=== PATIENT | male | born 1970 | race Caucasian/White ===

== ENCOUNTER 2020-10-10 21:21 | Emergency (ER) | payer MEDICARE, OTHER ==
[2020-10-10 21:54] LABS: RED BLOOD COUNT 3.24 M/UL (4.20-5.50); WHITE BLOOD COUNT 9.4 K/UL (4.5-11.0)
[2020-10-10 22:07] LABS: HEMOGLOBIN 5.8 gm/dl (14.0-17.5)
[2020-10-10 22:17] LABS: BUN/CREATININE RATIO 15 (0-10)
== END 2020-10-11 09:10 | disposition home or self-care (01) ==
LOC: ER1 21:21
PROVIDERS: Physician Assistant
DX: R07.9 Chest pain, unspecified (principal); R06.02 Shortness of breath; D64.9 Anemia, unspecified
CPT/HCPCS: 36430; 71045; 80053; 82272; 82550; 82553; 83874; 83880; 84484; 85025; 85379; 85610; 85730; 86850; 86900; 86901; 86920; 93005; 99285; P9016

== ENCOUNTER → 2020-11-10 17:46 | Emergency (ER) | payer MEDICARE, OTHER | END | disposition left against medical advice (07) | LOC: ER1 17:46 | DX: Z53.21 Procedure and treatment not carried out due to patient leaving prior to being seen by health care provider (principal) ==